=== PATIENT | male | born 1945 | race Caucasian/White ===

== ENCOUNTER 2023-04-06 11:30 | Outpatient (RCR) | payer MEDICARE, SELFPAY | END 2023-04-06 23:59 | disposition home or self-care (01) | LOC: CRHB 11:30 | PROVIDERS: ATTENDING PHYSICIAN Internal Medicine Cardiovascular Disease; FAMILY PHYSICIAN Internal Medicine | DX: I25.10 Atherosclerotic heart disease of native coronary artery without angina pectoris (principal); I25.2 Old myocardial infarction; I25.5 Ischemic cardiomyopathy | CPT/HCPCS: G0422; G0423 ==

== ENCOUNTER 2023-05-09 11:22 | Outpatient (RCR) | payer MEDICARE, SELFPAY | END 2023-05-09 23:59 | disposition home or self-care (01) | LOC: CRHB 11:22 | PROVIDERS: ATTENDING PHYSICIAN Internal Medicine Cardiovascular Disease; FAMILY PHYSICIAN Internal Medicine | DX: I25.118 Atherosclerotic heart disease of native coronary artery with other forms of angina pectoris (principal); I25.2 Old myocardial infarction; I25.5 Ischemic cardiomyopathy | CPT/HCPCS: G0422; G0423 ==

== ENCOUNTER 2023-06-01 10:41 | Outpatient (RCR) | payer MEDICARE, SELFPAY ==
[2023-05-18 11:57] LABS: HDL Cholesterol 44 mg/dl; LDL Cholesterol, Calculated 47 mg/dl; Total Cholesterol 111 mg/dl (50-199); Triglyceride 101 mg/dl (10-149); Very Low Density Lipoprotein 20 mg/dl (0-30)
== END 2023-06-01 23:59 | disposition home or self-care (01) ==
LOC: CRHB 10:41
PROVIDERS: ATTENDING PHYSICIAN Internal Medicine Cardiovascular Disease; FAMILY PHYSICIAN Internal Medicine
DX: I25.119 Atherosclerotic heart disease of native coronary artery with unspecified angina pectoris (principal); I25.2 Old myocardial infarction
CPT/HCPCS: 36415; 80061; G0422; G0423

== ENCOUNTER 2023-11-11 12:22 | Emergency (ER) | payer MEDICARE, SELFPAY ==
[2023-11-11 12:25] VITALS: BP 150/82
[2023-11-11 12:57] VITALS: BP 144/70
[2023-11-11 12:58] VITALS: BMI 30.8
[2023-11-11 13:00] VITALS: BP 135/77
[2023-11-11 14:00] VITALS: BP 135/73
[2023-11-11 14:11] LABS: % Basophils 0.2 % (0-2); % Eosinophils 1.6 % (0-6); % Immature Granulocytes 0.4 % (0-0.5); % Lymphocytes 9.5 % (20.5-51.1); % Monocytes 7.3 % (1.7-9.3); Absolute Eosinophils 0.1 10^3/uL (0-0.7); Absolute Lymphocytes 0.8 10^3/uL (1.2-3.4); Absolute Monocytes 0.6 10^3/uL (0.1-0.6); Absolute Neutrophils 6.6 10^3/uL (1.4-6.5); Hematocrit 30.4 % (39.0-52.0); Mean Corp Hgb Conc. 32.9 g/dL (33.0-37.0); Mean Corpuscular Hgb 32.3 pg (27.0-31.0); Mean Corpuscular Volume 98.1 fL (80.0-94.0); Mean Platelet Volume 10.6 fL (7.4-10.4); Nucleated Red Blood Cells % 0 % (-); Platelet Count 149 10^3/uL (130-400); White Blood Cell Count 8.1 10^3/uL (4.8-10.8)
[2023-11-11 14:24] LABS: ALT (SGPT) 17 U/L (0-50); AST (SGOT) 23 U/L (17-59); Albumin 3.6 g/dl (3.5-5.0); Alkaline Phosphatase 131 U/L (38-126); Blood Urea Nitrogen 64 mg/dl (9-20); Calcium 10.2 mg/dl (8.4-10.2); Carbon Dioxide 19 mmol/L (22-30); Chloride 114 mmol/L (98-107); Estimated Creatinine Clearance 23 ml/min; Glucose 98 mg/dl (70-99); Potassium 4.8 mmol/L (3.5-5.1); Sodium 141 mmol/L (135-145); Total Bilirubin 0.4 mg/dl (0.2-1.3); Total Protein 5.8 g/dl (6.3-8.2); eGFR 23.54
[2023-11-11] MEDS: NSS 1000 IV (15:17)
[2023-11-11 15:19] VITALS: BP 117/58
--- NOTE | 2023-11-11 17:27 | ED.GENMED ---
History of Present Illness
General
Chief Complaint: Musculo-Skeletal Complaint
Source: patient
Exam Limitations: none
Time Seen by Provider: 11/11/23 13:40
Nursing documentation reviewed up to this point in time: agreed with
History of Present Illness
History of Present Illness:
78-year-old male with past medical history of A-fib not currently anticoagulated but is on Plavix, CHF CAD, depression presenting to the emergency department today with concerns of a fall of a 6 foot metal ladder landing on his concrete floor of his
garage. Landed mainly on his right arm but also may have hit the back of his head. Did not lose consciousness was able to stand right up noted some significant swelling to his right arm and he came to the ER. Denies any back pain abdominal pain
was able to walk. Denies any nausea vomiting numbness or weakness.
Review of Systems
Review of Systems
Allergies reviewed?: Yes
All Other Systems: ROS reviewed and negative except as documented in HPI and ROS
Phy Exam
Physical Exam
Physical Exam:
GENERAL: Alert , in no apparent distress
EYE: pupils equal and reactive
NECK: Supple, no significant adenopathy.
ENT: Superficial laceration to the left posterior scalp no active bleeding o/p clr, mmm.
CARDIAC: Regular rate and rhythm .
LUNGS: Clear breath sounds bilaterally, no acute respiratory distress, no wheezes/rales/rhonchi
ABDOMEN: Soft, without focal tenderness, no r/g, no cvat
NEUROLOGICAL: Alert and oriented, no focal neuro deficits
SKIN: Superficial skin abrasion to the right forearm moderate sized hematoma to the right arm starting at the distal bicep region extending into the forearm mainly on the ulnar aspect of the proximal forearm not specifically pulsatile warm and dry,
skin intact.
MUSCULOSKELETAL: Swelling and bruising to the right forearm distal to the right bicep well perfused.
PSYCH: Normal and appropriate interaction.
Course
Orders/Labs/Results
Orders:
Orders
08/30/24 12:29
CT Head W/o Iv Contrast Urgent
Comment:
Reason For Exam: head strike on eliquis
CR Elbow - Right Min 3 Views Urgent
Comment:
Reason For Exam: fall
11/11/23 12:30
CT Cervical Spine W/o Iv Contr Urgent
Comment:
Reason For Exam: fall
11/11/23 14:01
CT Upper Ext Angio W/wo Iv Con Urgent
Comment:
Reason For Exam: right arm, injury to right bicep, large expanding
11/11/23 14:03
CBC/With Diff [Complete Blood Count/With Diff] Urgent
CMP [Comprehensive Metabolic Panel] Urgent
11/11/23 15:12
0.9% Sodium Chloride 1000 ml [Nss] 1,000 ml IV BOLUS
11/11/23 17:27
Tetanus/Diphth/Acelpertussis [Adacel] 0.5 ml IM .ONCE ONE
Abnormal Lab Results
11/11/23
14:03
RBC 3.10 L 10^6/uL
(4.70-6.10)
Hgb 10.0 L g/dL
(13.0-18.0)
Hct 30.4 L %
(39.0-52.0)
MCV 98.1 H fL
(80.0-94.0)
MCH 32.3 H pg
(27.0-31.0)
MCHC 32.9 L g/dL
(33.0-37.0)
MPV 10.6 H fL
(7.4-10.4)
Absolute Neuts (auto) 6.6 H 10^3/uL
(1.4-6.5)
Absolute Lymphs (auto) 0.8 L 10^3/uL
(1.2-3.4)
Neutrophils % 81.0 H %
(42.2-75.2)
Lymphocytes % 9.5 L %
(20.5-51.1)
Chloride 114 H mmol/L
(98-107)
Carbon Dioxide 19 L mmol/L
(22-30)
BUN 64 H mg/dl
(9-20)
Creatinine 2.7 H mg/dL
(0.7-1.3)
Alkaline Phosphatase 131 H U/L
(38-126)
Total Protein 5.8 L g/dl
(6.3-8.2)
11/11/23 14:03
11/11/23 14:03
Vital Signs
Initial and Last Documented VS:
Initial Vital Signs
Temp Pulse Resp BP Pulse Ox
98.3 F 64 20 150/82 99
11/11/23 12:25 11/11/23 12:25 11/11/23 12:25 11/11/23 12:25 11/11/23 12:25
Last Documented Vital Signs
Temp Pulse Resp BP Pulse Ox
98.3 F 67 16 117/58 98
11/11/23 12:25 11/11/23 15:19 11/11/23 15:19 11/11/23 15:19 11/11/23 15:19
MDM/Problems Addressed
MDM/Problems Addressed:
78-year-old male presenting to the emergency department today with concerns after he fell off a 6 foot metal ladder onto concrete floor mainly landing on his right arm and also at the left posterior head did not lose consciousness is on Plavix.
Here, Vital signs are normal. Patient mainly concerned right arm pain denies any headache no neck pain no numbness or weakness no abdominal pain back pain or lower extremity discomfort. Patient ambulating without difficulty. Initial labs showing
baseline renal function and hemoglobin. Initial swelling of the right forearm was significant. Pressure dressing was placed and this seemed to decrease in size. A CT angiogram was performed concerning the very large size of the hematoma to the
right forearm also the patient is on Plavix. Angiogram was performed patient does have a GFR this in the 20s this has been there for a long period of time he was given some fluids to prep for this I felt that benefit outweighs the risk to ensure
there we are not missing acute hemorrhage that would likely lead to compartment syndrome. This scan did not show any emergent hemorrhage. Symptoms improved over the few hours it took to get the scan no signs of compartment syndrome here. He was
given instructions to elevate his arm and to monitor for symptoms and to return for any worsening of symptoms. Otherwise stable for outpatient management and close primary care follow-up.
*Critical Care Note
Total Time (30-74mins, 75-104mins- exclusive of procedures): Not Applicable
ED Attending Note
-
Portions of this chart may have been created with voice recognition software.� Occasional wrong word or��sound alike� substitutions may have occurred due to the inherent limitations of voice recognition software.
Discharge Plan
Departure
Patient Disposition: Home (Routine Discharge)
Date of Disposition: 11/11/23
Time of Disposition: 17:33
Patient with high blood pressure during this ER visit?: No
Condition: Good
Covid-19: Not Applicable
Discharge Problem:
Fall from ladder, Hematoma of right forearm, Abrasion of scalp
Instructions: Muscle and Bone Pain (DC), Hematoma
Prescriptions:
No Action
terazosin 5 mg capsule
5 mg PO BID
atorvastatin 40 mg tablet
40 mg PO HS
carvedilol 12.5 mg tablet
12.5 mg PO BID
sertraline 100 mg tablet
100 mg PO DAILY
clopidogrel 75 mg tablet
75 mg PO DAILY
spironolactone 25 mg tablet
25 mg PO DAILY
amlodipine 10 mg tablet
10 mg PO DAILY
pantoprazole 40 mg tablet,delayed release (DR/EC)
40 mg PO DAILY
ferrous sulfate 325 mg (65 mg iron) Tablet
325 mg PO DAILY
allopurinol 300 mg tablet
300 mg PO DAILY
zolpidem 5 mg tablet
5 mg PO HS PRN (Reason: sleep)
Patient Comments:
02/11/2023: last filled 08/05/22, 30 tabs for 30 days from [facility]
ketoconazole 2 % cream
1 applic TOPICAL DAILY PRN (Reason: eczema)
losartan 100 mg tablet
100 mg PO BID
finasteride 5 mg tablet
5 mg PO QPM
Jardiance 10 mg tablet
10 mg PO DAILY
Referrals:
Snehal Grimaldo MD [Family Provider] -
Activity Restrictions/Additional Instructions:
You came to the emergency department today after a fall off a ladder. Here had a reassuring assessment with normal CT scan of your head and neck as well as no evidence of acute bleeding to your right arm. Please keep your arm elevated and rested
to reduce risk of any ongoing bleeding and hematoma. If you notice any numbness weakness, pale discoloration or coldness to your right arm please get reassessed immediately as those are signs of compartment syndrome. Please follow close with your
primary care doctor. Return to the emergency department for any worsening, new or concerning symptoms.
Interventions
Interventions:
*Risk Screen - Suicide Last Done: 11/11/23 12:25
*General Assessment Last Done: 11/11/23 12:25
*Neglect/Abuse Screening Last Done: 11/11/23 12:25
ED- Fall Risk Assessment Last Done: 11/11/23 12:58
*ED COVID-19 Vaccine History Last Done: 11/11/23 12:58
ED-Musculoskeletal Assessment Last Done: 11/11/23 12:58
Discharge Date and Time
Print Language: NICARAGU[place]
[2023-11-11] MEDS: ADACEL 0.5 ML IM (17:40)
== END 2023-11-11 17:48 | disposition home or self-care (01) ==
LOC: EMR 12:22
PROVIDERS: Physician Assistant; EMERGENCY PHYSICIAN Emergency Medicine; FAMILY PHYSICIAN Internal Medicine
DX: S50.11XA Contusion of right forearm, initial encounter (principal); S00.01XA Abrasion of scalp, initial encounter; W11.XXXA Fall on and from ladder, initial encounter; I50.9 Heart failure, unspecified; I25.10 Atherosclerotic heart disease of native coronary artery without angina pectoris; F32.A Depression, unspecified; Z23 Encounter for immunization; Z79.02 Long term (current) use of antithrombotics/antiplatelets; Z79.01 Long term (current) use of anticoagulants
CPT/HCPCS: 99285; 96360; 90471; 70450; 72125; 73080; 73206; 80053; 85025; 90715; Q9967